=== PATIENT | female | born 1980 | race African-American/Black ===

== ENCOUNTER 2017-01-11 09:27 | Emergency (ER) | payer MEDICAID ==
[~2017-01-11] VITALS: Ht 162.6 cm; Wt 126.7 kg
[~2017-01-11 09:27] MED LIST: ASPI-917 PO; HYDR-4074 PO; LISI1TAB11 PO; NO ROUTINE MEDS
[2017-01-11 09:34] VITALS: Ht 162.6 cm; Wt 126.7 kg
[2017-01-11] MEDS ORDERED: LISI1TAB11 PO (09:40)
--- NOTE | 2017-01-11 10:35 | NUR ---
RETURNED FROM CT
--- NOTE | 2017-01-11 10:54 | DI ---
Indication: ITS.REASON: jaw pain PROCEDURE: CT MAXILLOFACIAL W/O CONTRAST: Encounter: Initial Comparison: None Technique: Axial noncontrast CT images through the mid face were performed with coronal and sagittal two-dimensional reformats. Automated Exposure Control and Iterative Reconstruction dose reducing techniques were utilized. Findings: The left mandibular condyle is anteriorly dislocated. Right temporomandibular joint appears normally located. No acute maxillofacial fracture. No significant degenerative change within the temporomandibular joints. No significant periodontal disease seen. The paranasal sinuses are clear. Trace right mastoid effusion. Left mastoid air cells appear clear. The globes are intact. Lenses are located. No subcutaneous inflammation or fluid pocket identified. Impression: Anterior dislocation of the left mandibular condyle. .
[2017-01-11] MEDS ORDERED: NORMAL SALINE 500 ML IV ONE (11:30)
[2017-01-11] MEDS ORDERED: ONDANSETRON 4mg/2ml INJECTION IV ONE (11:30)
[2017-01-11] MEDS ORDERED: MORPHINE SULFATE 4 MG SYRINGE IV ONE (11:30)
--- NOTE | 2017-01-11 11:30 | NUR ---
MEDICATIONS ZOFRAN AND MORPHINE GIVEN PER ORDERS
[2017-01-11] MEDS ORDERED: LORAZEPAM 2 MG/ML INJECTION IV ONE (12:00)
[2017-01-11] MEDS ORDERED: HYDROMORPHONE 2mg/ml INJECTION IV ONE ×2 (12:00→13:45)
--- NOTE | 2017-01-11 12:11 | NUR ---
STATUS ATIVAN AND DILAUDID GIVEN PER ORDERS AT THIS TIME IN ROOM, ATTEMPTING TO POP JAW BACK IN PLACE WITH GENTLE PRESSURE
--- NOTE | 2017-01-11 13:00 | NUR ---
STATUS PATIENT TEARFUL AND REQUESTS TO LEAVE. STATES SHE "HAS NEVER HAD SO MUCH PROBLEM WITH TRYING TO PUT JAW BACK IN PLACE BEFORE," AND IS STILL IN PAIN. WANTS TO GO HOME. EXITS TO WAITING ROOM. THIS NURSE TALKS WITH PATIENT AND SHE IS BROUGHT BACK INTO TRIAGE ROOM WHERE TALKS MORE WITH PATIENT AND PATIENT'S MOTHER VIA CELL PHONE. PATIENT AMBULATES BACK TO ROOM 2 AND ORDERS FOR PAIN MEDS ARE GIVEN.
--- NOTE | 2017-01-11 13:42 | NUR ---
DILAUDID GIVEN PER ORDERS AT THIS TIME.
--- NOTE | 2017-01-11 14:03 | ERPDOC ---
Departure Disposition Decision Date: Jan 11, 2017 Disposition Decision Time: 14:00 Disposition: 01 DISCHARGED HOME, SELF-CARE Impression Impression Impression: Primary Impression: Jaw pain Severity: Mild Condition: Improved Seen By: Physician only Referrals: Pankaj WILDER MD (PCP) ALEX WATERS APRN (Family) 2 Days Patient Instructions: Musculoskeletal Pain (ED) Problems/Meds/Labs Reviewed?: Yes Medications reviewed and manag: Yes Additional Instructions: Call Dr. Syd Chanel for appointment time today. See him tomorrow for follow up care. [address] [place] [address]. [facility] [phone] Follow up care ordered?: Yes Mental Status: Alert, Oriented Scripts Ondansetron (Zofran Odt) 4 Mg Tab.rapdis 4 MG PO Q4HR Y for NAUSEA &/OR VOMITING for 3 Days, #18 TAB 0 Refills Prov: YUMIKO SON DO 01/11/17 Oxycodone HCl/Acetaminophen (Percocet 7.5-325 mg Tablet) 7.5-325 Tablet 1 TAB PO Q4H Y for PAIN for 3 Days, #18 TAB 0 Refills Take 1 tablet, by mouth, every 4 hours as needed for pain. Prov: YUMIKO SON DO 01/11/17 HPI - General Medical General Chief Complaint: General Stated Complaint: JAW OUT OF PLACE Time Seen by Provider: 09:45 Source: patient Exam Limitations: no limitations HPI - General Medical Initial Comments 36-year-old female with a history of recurrent jaw dislocations presents to the emergency department with the chief complaint of a potential recurrent dislocation of her jaw. Patient was yawning at home immediately prior to arrival to the emergency department when she felt a pop in her jaw. Patient is experiencing a moderate discomfort that is rated at 8/10. It is dull. Pain increases with opening of the mouth. Pain improves with analgesic pain medication. Patient denies any other complaints or associated symptoms. She was at home when the symptoms began. Symptoms have been persistent in nature since onset. Patient has a long-standing history of recurrent dislocation of the jaw. Her last incident occurred in 2011. Patient was supposed to undergo corrective surgery at that time which she declined. No other complaints or associated symptoms. Occurred At: home Onset: Rapid Allergies: Coded Allergies: No Known Allergies (Unverified , 01/11/17) Past History Past Medical History Metabolic: hypertension Surgical History General: other Family History Family PMH: FOUND: hypertension Vaccines Hx Influenza Vaccination: No Hx Pneumococcal Vaccination: No Social History Smoking Status: Never smoker Does patient use chewing tobac: No Second Hand Exposure: No Substance Use Type: does not use Alcohol Intake: none Household Members: family Current Occupational Status: employed Review of Systems Constitutional Constitutional: DENIES: chills, fever Eyes General: DENIES: erythema, exudate Lids/Accessories: DENIES: erythema, swelling Vision: DENIES: acuity, blurring ENMT Ears: DENIES: drainage, erythema Hearing: DENIES: hearing loss Balance: DENIES: ataxia, falling to one side Sinuses: DENIES: congestion, pain Nose: DENIES: nosebleeds, pain Mouth/Throat: DENIES: drooling, painful swallowing, sore throat Teeth: DENIES: pain Jaw: pain, previous dislocation Cardiovascular Cardiac: DENIES: chest pain, dyspnea on exertion Rhythm/Rate: DENIES: irregular beat, palpitations Vascular: DENIES: pedal edema, unilateral swelling Pulmonary Respiratory: DENIES: cough, dyspnea, pleuritic chest pain, sputum GI Upper Abdomen: DENIES: nausea, pain, vomiting Lower Abdomen: DENIES: diarrhea, pain General: DENIES: dysuria, frequency Musculoskeletal General: DENIES: joint pain, tenderness Integumentary Skin: DENIES: itching, rash Neurological General: DENIES: headache, numbness, weakness Psychiatric Psychiatric: DENIES: emotional instability, suicidal ideation/attempt Endocrine Endocrine: DENIES: polydipsia, polyphagia Hematologic/Lymphatic Hematologic/Lymphatic: DENIES: frequent nosebleeds, lymphadenopathy Allergic/Immunological Allergic/Immunoligical: DENIES: allergic reactions, hives Physical Exam General General Nourishment: well nourished, well developed, appears stated age, no acute distress, adult General Body Habitus: well groomed Vitals and Pain First Documented Vital Signs Date Time Temp Pulse Resp B/P Pulse Ox O2 Delivery O2 Flow Rate FiO2 01/11/17 09:34 98.6 106 18 159/89 99 Room Air Weight: Kilograms: 126.700 Height (feet): 5 Height (inches): 4.00 Triage Pain Scale: RN VS reviewed by Provider: Yes Normal Exams: Head: Normocephalic w/o trauma Eyes: Pupils are PERRLA w/ EOMI, No scleral icterus, irritation, or foreign bodies noted ENMT: No facial trauma, nasal exudates, pharyngeal erythema, or exudates are noted Dental: No fractured, loose, or missing teeth noted Neck: Full range of motion, without adenopathy, JVD, bruits or thyromegaly Chest/Resp: Clear all bahena, with good airflow, and symmetry bilaterally CV: Regular rate and rhythm, without murmur or gallop, Pulses 2+ all extremities, capillary refill, <2 seconds all ext., no pedal edema noted Abdomen: Bowel sounds positive, soft, non-tender, non-distended, no hepatosplenomegaly, masses or bruits noted Lymphatic: No lymphadenopathy, or lymphedema noted Musculoskeletal: No tenderness, or deformity noted, good range of motion, all extremities Integumentary: No rashes, hives, or bruising noted, hair and nails, without abnormality Neurologic: Patient is alert, and oriented, cranial nerves, motor/sensory/ cerebellar, exams w/o gross deficits, to observation Psychiatric: Patient exhibits, appropriate attention, emotion and affect ENMT (brief) Comments Jaw - tender to palpation over the left TMJ. Patient is able to close her mouth without difficulty. She is able to speak in full sentences without difficulty. No erythema or edema. skin is intact. Differential Diagnoses Considering: Other (fracture/dislocation/TMJ/dental pain) Procedures Reduction of Joint/Fracture Procedure Joint/Fracture Reduc : Consent Obtained: Yes Pre-procedure NV: FOUND: cap refill < 3 sec, good movement, good sensation Anesthesia: other (Dilaudid / Ativan) Attempts: 2 Post-procedure NV: FOUND: cap refill < 3 sec, good movement, good sensation Comments Patient refused conscious sedation for attempt at relocation of jaw. Progress Results/Orders Orders Procedure Category Date Status Time Ct Maxillofacial W/O CT 01/11/17 Resulted Contrast 09:52 Normal Saline (Ns) PHA 01/11/17 Complete 11:30 Morphine Sulfate PHA 01/11/17 Complete (Morphine) 11:30 Ondansetron Inj PHA 01/11/17 Complete (Zofran) 11:30 Hydromorphone PHA 01/11/17 Complete (Dilaudid) 12:00 Lorazepam (Ativan) PHA 01/11/17 Complete 12:00 Hydromorphone PHA 01/11/17 Complete (Dilaudid) 13:45 Medications Current ED Medications Sodium Chloride (NS) 500 ml @ 999 mls/hr Q31M ONCE IV Last administered on 01/11 11:29; Start 01/11/17 at 11:30; Stop 01/11/17 at 12:00; Status DC Morphine Sulfate (Morphine) 4 mg O ONCE IV Last administered on 01/11/17 11:34 ; Start 01/11/17 at 11:30; Stop 01/11/17 at 11:31; Status DC Ondansetron HCl (Zofran) 4 mg O ONCE IV Last administered on 01/11/17 11:30; Start 01/11/17 at 11:30; Stop 01/11/17 at 11:31; Status DC Hydromorphone HCl (Dilaudid) 0.5 mg O ONCE IV Last administered on 01/11/17 12 :11; Start 01/11/17 at 12:00; Stop 01/11/17 at 12:01; Status DC Lorazepam (Ativan) 1 mg O ONCE IV Last administered on 01/11/17 12:12; Start 01/11/17 at 12:00; Stop 01/11/17 at 12:01; Status DC Hydromorphone HCl (Dilaudid) 1 mg O ONCE IV Last administered on 01/11/17 13: 42; Start 01/11/17 at 13:45; Stop 01/11/17 at 13:46; Status DC Progress Progress Imaging is discussed in detail with the patient and questions are answered. Patient requests to use the same medication that she received in 2012 which is provided at her request. She is administered Dilaudid and Ativan. 2 different techniques with attempt at reduction of jaw are unsuccessful. At this point, the patient is recommended to undergo conscious sedation for complete relaxation and reduction of jaw. Patient refuses. Patient is not comfortable undergoing conscious sedation. Patient states that she has never undergone conscious sedation in the past and is not comfortable doing so now. Patient states that she is also not comfortable undergoing conscious sedation due to the fact that there is no oral maxillofacial expert at [facility], I offered conscious sedation repeatedly which the patient declined. Patient is upset that the initial reduction attempts did not change anything for her. After declining conscious sedation, the patient is discussed with Dr. Syd Chanel of who is an oral maxillofacial surgeon. Dr. Chanel reviews the patient's CT scan and patient presentation in detail. His recommendation since the patient refuses to accept conscious sedation is to provide the patient with analgesic pain medication and have the patient follow- up with him in the office tomorrow morning. After reviewing the CT scan he does not believe the patient to have a true dislocation of her jaw as she is not stuck in any position and can close and open the mouth without difficulty. His recommendation is to have the patient follow a soft diet and use analgesic pain medication and see him in his office tomorrow morning 1st thing for further evaluation and treatment. According to the recommendation from oral maxillofacial there is no harm and allowing the patient to follow up the following morning even if she should in fact have a mild dislocation. Close follow-up for the patient is obtained. Patient is to call Dr. Chanel's office for her appointment time after leaving the emergency department today. She is provided with a prescription for Percocet and Zofran. She is discharged home in improved condition. She is to return to the emergency Department if her condition worsens or changes in any manner. She is to follow-up as instructed with close follow-up obtained with oral maxillofacial tomorrow morning. She verbalizes agreement and understanding. She is in agreement with the current plan of management. Phone Consult: Dr. Syd Chanel - [facility] [place] CT: Other Interpretation: Abnormal (potential anterior dislocation of the left mandible. No Fracture.), Reviewed Written Report YUMIKO SON DO Jan 11, 2017 14:03
[2017-01-11] MEDS ORDERED: OXYC1TAB11 PO (14:04)
[2017-01-11] MEDS ORDERED: ONDA4TAB7 PO (14:04)
[2017-01-11 14:15] VITALS: BP 156/85; PULSE 83; RESP 16; TEMP 98.6; O2SAT 99
--- NOTE | 2017-01-11 14:15 | NUR ---
DISMISS INSTRUCTIONS REVIEWED AND GIVEN TO PATIENT VERBALIZED UNDERSTANDING RX X 2 GIVEN. AMBULATES TO EXIT AND LEAVES WITH FAMILY
== END 2017-01-11 14:15 | disposition home or self-care (01) ==
LOC: ED 09:27
DX: Z03.89 Encounter for observation for other suspected diseases and conditions ruled out (principal); R68.84 Jaw pain
CPT/HCPCS: 21480; 70486; 99284; J1170; J2060; J2405